=== PATIENT | female | born 1995 | race Hispanic/Latino ===

== ENCOUNTER 2025-08-23 16:06 | Emergency (ER) | payer BC ==
[~2025-08-23] VITALS: Ht 172.7 cm; Wt 99.8 kg
[2025-08-23 17:14] LABS: BASOPHILS % 0.3 % (0.0-1.0); EOSINOPHILS % 0.6 % (0.0-6.0); LYMPHOCYTES % 21.9 % (18.0-39.1); MONOCYTES % 6.4 % (4.4-11.3); NEUTROPHILS % 70.6 % (38.7-80.0); RED CELL DISTRIBUTION WIDTH 12.6 % (11.7-14.4)
[2025-08-23] MEDS: SODIUM CHLORIDE 0.9% 1000ML 1,000 ML IV STA (17:14)
[2025-08-23] MEDS: PROMETHAZINE 12.5MG/ NACL 0.9% 12.5 MG/50 ML BAG IV ONE (17:15)
[2025-08-23 17:38] LABS: EST GLOMERULAR FILTRATION RATE 110.0 ML/MIN (>=60)
[2025-08-23 18:50] LABS: LEUKOCYTE ESTERASE ,URINE NEGATIVE (NEGATIVE); PROTEIN,URINE DIPSTICK NEGATIVE (NEGATIVE); URINE UROBILINOGEN 0.2 mg/dL (0.2 - 1)
[2025-08-23 19:00] VITALS: PULSE 63; RESP 16; TEMP 98
[2025-08-23] MEDS ORDERED: PANTOPRAZOLE SO40 MG PO (20:04)
[2025-08-23 20:40] VITALS: BP 123/77; PULSE 67; RESP 16; TEMP 98; O2SAT 100
== END 2025-08-23 20:44 | disposition home or self-care (01) ==
LOC: ER 19:51
DX: R10.13 Epigastric pain (principal); R11.2 Nausea with vomiting, unspecified
CPT/HCPCS: 36415; 80053; 81001; 83690; 84702; 85025; 99284; J2470; J2550; J7030